=== PATIENT | female | born 2000 | race Caucasian/White ===

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

== ENCOUNTER 2021-10-28 10:24 | Emergency (ER) | payer MEDICAID, OTHER ==
[~2021-10-28] VITALS: Ht 160 cm; Wt 59.9 kg
[2021-10-28 10:31] VITALS: BP 122/45
--- NOTE | 2021-10-28 10:45 | NUR ---
pt returned to lobby at this time with urine cup
--- NOTE | 2021-10-28 11:48 | NUR ---
AMBULATED TO BED 9
--- NOTE | 2021-10-28 12:20 | NUR ---
21/F PRESENTS TO ED WITH C/O ABDOMINAL PAIN WITH N/V/D SINCE THIS MORNING. PATIENT STATES LAST EPISODE OF VOMITING WAS UPON ARRIVAL TO ED, STATES HER SYMPTOMS OF ABDOMINAL PAIN HAS SINCE RESOLVED. DENIES TAKING ANYTHING FOR SYMPTOMS, DENIES FEVER, CHILLS, CP OR SOB.
[2021-10-28] MEDS ORDERED: ONDANSETRON 4 MG ODT PO ONE (12:25)
--- NOTE | 2021-10-28 12:45 | NUR ---
FLU AND NOVEL SWABS COLLECTED AND WALKED TO LAB.
[2021-10-28] MEDS ORDERED: ONDA-188 PO (14:40)
[2021-10-28 15:23] VITALS: BP 118/50
--- NOTE | 2021-10-28 15:23 | NUR ---
Patient discharged with v/s stable. Written and verbal after care instructions given and explained. Patient alert, oriented and verbalized understanding of instructions. Ambulatory with steady gait. All questions addressed prior to discharge. ID band removed. Patient advised to follow up with PMD. Rx of Zofran ODT 4mg given. Patient educated on indication of medication including possible reaction and side effects. Opportunity to ask questions provided and answered.
== END 2021-10-28 15:23 | disposition home or self-care (01) ==
LOC: MED 10:24
DX: R10.9 Unspecified abdominal pain (principal); Z20.822 Contact with and (suspected) exposure to COVID-19; R11.2 Nausea with vomiting, unspecified; R19.7 Diarrhea, unspecified; Z79.899 Other long term (current) drug therapy
CPT/HCPCS: 81002; 87804; 99283; Q0162; U0003

== ENCOUNTER 2021-11-23 20:58 | Emergency (ER) | payer OTHER ==
[~2021-11-23] VITALS: Ht 160 cm; Wt 54.4 kg
[~2021-11-23 20:58] MED LIST changes: +ONDA-188 PO
[2021-11-23 21:21] VITALS: BP 156/72
--- NOTE | 2021-11-23 21:27 | NUR ---
TO LOBBY FOLLOWING TRIAGE
--- NOTE | 2021-11-23 21:27 | NUR ---
Florentin mcfarland in [facility] - 11/23/21 at 2128 by PROSPER TO SHAR FOLLOWING TRIAGE
[2021-11-23] MEDS ORDERED: HYDROcodone/APAP 5/325 MG 1 TAB TAB PO ONE (23:35)
[2021-11-23] MEDS ORDERED: LIDOCAINE MPF 1% 10 MG/ML VIAL INJ ONE (23:35)
[2021-11-24] MEDS ORDERED: cephALEXin 500 MG CAP PO ONE (00:45)
--- NOTE | 2021-11-24 00:54 | NUR ---
PT RETURN FROM XRAY
[2021-11-24] MEDS ORDERED: CEPH-588 PO (01:09)
[2021-11-24] MEDS ORDERED: HYDROcodone/APAP 5/325 MG 1 TAB TAB ONE (01:10)
== END 2021-11-24 01:32 | disposition home or self-care (01) ==
LOC: MED 20:58
DX: S92.491A Other fracture of right great toe, initial encounter for closed fracture (principal); X58.XXXA Exposure to other specified factors, initial encounter; Y93.89 Activity, other specified; Y92.89 Other specified places as the place of occurrence of the external cause; Y99.8 Other external cause status
CPT/HCPCS: 11730; 73660; 90471; 90715; 99284; J2001

== ENCOUNTER 2022-06-02 10:50 | Emergency (ER) | payer OTHER ==
[~2022-06-02] VITALS: Ht 160 cm; Wt 62.1 kg
[~2022-06-02 10:50] MED LIST changes: +CEPH-588 PO
[2022-06-02 10:59] VITALS: BP 127/75
--- NOTE | 2022-06-02 11:07 | NUR ---
22 y/o female, c/o abdominal pain, n&v, chest pain that started this morning. skin is pink/warm/dry. a&o x4 with even and steady gait. lungs clear bl, heart rate even and tachy. pt denies dysuria, hematuria, urinary frequency or retention, or anyone sick in the household with the same symptoms. pt denies any fever, cp, sob, or cough at this time. pt states pain is 10/10 at this time, describes it as a stabbing pain. ermd made aware of pt. pmh: denies nka med: denies Addendum: 06/02/22 at 1130 by [facility] 22 y/o female, c/o abdominal pain, n&v, chest pain that started this morning. skin is pink/warm/dry. a&o x4 with even and steady gait. lungs clear bl, heart rate even and tachy. pt denies dysuria, hematuria, urinary frequency or retention, or anyone sick in the household with the same symptoms. pt denies any fever, cp, sob, or cough at this time. pt states pain is 10/10 at this time, describes it as a stabbing pain. ermd made aware of pt. pt states last night she was heavily drinking, reports drinking around 10 shots of alcohol, unable to recall what kind. pmh: denies nka med: denies
--- NOTE | 2022-06-02 11:19 | NUR ---
pt ambulated to bed 11 at this time
[2022-06-02] MEDS ORDERED: ONDANSETRON 4 MG/2 ML VIAL IVP ONE (11:40)
--- NOTE | 2022-06-02 11:40 | NUR ---
Blood work handed to CPT Gala at ER bedside.
[2022-06-02] MEDS ORDERED: ONDANSETRON 4 MG/2 ML VIAL ONE (11:41)
--- NOTE | 2022-06-02 11:41 | NUR ---
Patient with one episode of vomiting.
--- NOTE | 2022-06-02 11:59 | NUR ---
Dr. Larios is evaluating patient at bedside
[2022-06-02 12:02] LABS: APPEARANCE,URINE CLEAR (CLEAR); BILIRUBIN,URINE NEGATIVE (NEGATIVE); BLOOD, URINE TRACE-I (NEGATIVE); COLOR,URINE YELLOW (YELLOW); LEUKOCYTE ESTERASE ,URINE NEGATIVE (NEGATIVE); NITRITE, URINE NEGATIVE (NEGATIVE); UGLUCOSE NEGATIVE (NEGATIVE)
[2022-06-02] MEDS ORDERED: NACL 0.9% 1,000 ML IV ONE (12:05)
--- NOTE | 2022-06-02 12:20 | NUR ---
Patient transported to [facility] by w/c.
[2022-06-02 12:21] LABS: RBC,URINE 0-5 /HPF (0-5)
[2022-06-02 12:22] LABS: OTHER CASTS, URINE None Seen /LPF (None Seen); WBC,URINE 0-5 /HPF (0-5)
[2022-06-02 12:24] LABS: ALBUMIN 4.6 g/dL (3.4-5.0); ANION GAP 19.9 (8-16); CARBON DIOXIDE 18.4 mmol/L (21-32); CREATININE 0.7 mg/dL (0.6-1.3); POTASSIUM 3.3 mmol/L (3.5-5.1); TOTAL BILIRUBIN 0.5 mg/dL (0.0-1.0)
--- NOTE | 2022-06-02 12:27 | NUR ---
Patient returned from RAD via WC.
--- NOTE | 2022-06-02 12:33 | NUR ---
Pt states feels a lot better. IVF continued. Denies nausea at this time. VSS; RR even/unlabored.
[2022-06-02 12:49] LABS: HEMATOCRIT 40.2 % (36-48); HEMOGLOBIN 13.6 g/dL (12.0-16.0); MEAN CORPUSCULAR HEMOGLOBIN 31 pg (27-31); MEAN CORPUSCULAR HGB CONC 34 g/dL (33-37); MEAN CORPUSCULAR VOLUME 91.8 fL (80-94); PLATELET COUNT (AUTO) 186 K/uL (140-450); RED BLOOD CELL COUNT(AUTO) 4.38 MIL/uL (4.20-5.40); RED CELL DISTRIBUTION WIDTH 13.1 % (11.6-13.7); WHITE BLOOD COUNT (AUTO) 23.1 K/uL (4.8-10.8)
[2022-06-02] MEDS ORDERED: TAMSULOSIN 0.4 MG CAP GT STA (13:46)
[2022-06-02 13:55] LABS: BASOPHILS % (AUTO) 0.1 % (0.0-2.0); EOSINOPHILS # (AUTO) 0.1 K/uL (0-0.4); EOSINOPHILS % (AUTO) 0.2 % (0.0-4.0); LYMPHOCYTES # (AUTO) 1.9 K/uL (2.5-16.5); LYMPHOCYTES % (AUTO) 8.3 % (20.5-51.1); MONOCYTES # (AUTO) 1.2 K/uL (0.8-1.0); MONOCYTES % (AUTO) 5.4 % (1.7-9.3); NEUTROPHILS # (AUTO) 19.9 K/uL (1.8-7.7); PLATELET COUNT,MANUAL 187 K/uL (150-450)
[2022-06-02] MEDS ORDERED: POTASSIUM CHLORIDE 10 MEQ TABER PO ONE ×2 (13:55→13:57)
[2022-06-02 13:58] LABS: LYMPHOCYTES % (MANUAL) 6 % (20-46); MONOCYTES % (MANUAL) 4 % (5-12)
--- NOTE | 2022-06-02 13:59 | NUR ---
Pulled additional K-Dur 10mEq d/t patient dropping on ground.
[2022-06-02] MEDS ORDERED: MAG-27 PO (14:09)
[2022-06-02] MEDS ORDERED: ONDA-188 PO (14:09)
[2022-06-02 14:14] VITALS: BP 103/57
--- NOTE | 2022-06-02 14:36 | NUR ---
Patient discharged with v/s stable. Written and verbal after care instructions given and explained. Patient alert, oriented and verbalized understanding of instructions. Ambulatory with steady gait. All questions addressed prior to discharge. ID band removed. Patient advised to follow up with PMD. Rx of Tate Knapp given. Patient educated on indication of medication including possible reaction and side effects. Opportunity to ask questions provided and answered.
== END 2022-06-02 14:36 | disposition home or self-care (01) ==
LOC: MED 10:50
DX: R10.10 Upper abdominal pain, unspecified (principal); R11.0 Nausea; Z98.890 Other specified postprocedural states; Z79.899 Other long term (current) drug therapy
CPT/HCPCS: 36415; 74176; 80053; 81001; 81025; 83690; 85025; 96361; 96374; 99284; J2405; J7030

== ENCOUNTER 2023-01-08 08:32 | Emergency (ER) | payer OTHER ==
[~2023-01-08] VITALS: Ht 160 cm; Wt 65.4 kg
[~2023-01-08 08:32] MED LIST changes: +MAG-27 PO
[2023-01-08 08:39] VITALS: BP 118/60
--- NOTE | 2023-01-08 08:58 | NUR ---
ASSUMED PATIENT CARE, NURSING ASSESSMENT COMPLETED.
[2023-01-08] MEDS ORDERED: ONDANSETRON 4 MG/2 ML VIAL IVP ONE (09:10)
[2023-01-08] MEDS ORDERED: NACL 0.9% 1,000 ML IV SCH (09:10)
[2023-01-08 09:46] LABS: APPEARANCE,URINE CLEAR (CLEAR); BILIRUBIN,URINE NEGATIVE (NEGATIVE); BLOOD, URINE NEGATIVE (NEGATIVE); COLOR,URINE YELLOW (YELLOW); LEUKOCYTE ESTERASE ,URINE TRACE (NEGATIVE); NITRITE, URINE NEGATIVE (NEGATIVE); PH,URINE 8.5 (5.0-9.0); UGLUCOSE NEGATIVE (NEGATIVE)
[2023-01-08 10:07] LABS: BASOPHILS % (AUTO) 0.2 % (0.0-2.0); EOSINOPHILS # (AUTO) 0.2 K/uL (0-0.4); EOSINOPHILS % (AUTO) 1.2 % (0.0-4.0); HEMATOCRIT 38.8 % (36-48); HEMOGLOBIN 12.9 g/dL (12.0-16.0); LYMPHOCYTES % (AUTO) 6.6 % (20.5-51.1); MEAN CORPUSCULAR HEMOGLOBIN 30 pg (27-31); MEAN CORPUSCULAR HGB CONC 33 g/dL (33-37); MEAN CORPUSCULAR VOLUME 91.4 fL (80-94); MONOCYTES # (AUTO) 0.5 K/uL (0.8-1.0); MONOCYTES % (AUTO) 3.1 % (1.7-9.3); NEUTROPHILS # (AUTO) 13.2 K/uL (1.8-7.7); NEUTROPHILS % (AUTO) 88.9 % (42.2-75.2); PLATELET COUNT (AUTO) 172 K/uL (140-450); RED BLOOD CELL COUNT(AUTO) 4.24 MIL/uL (4.20-5.40); RED CELL DISTRIBUTION WIDTH 12.8 % (11.6-13.7); WHITE BLOOD COUNT (AUTO) 14.8 K/uL (4.8-10.8)
[2023-01-08 10:58] LABS: ALBUMIN 3.8 g/dL (3.4-5.0); ANION GAP 18.9 (8-16); ASPARTATE AMINOTRANSFERASE 16 U/L (15-37); CARBON DIOXIDE 20.6 mmol/L (21-32); CHLORIDE 102 mmol/L (98-107); CREATININE 0.8 mg/dL (0.6-1.3); GFR ARICAN-AMERICAN 116 mL/min (>90); GLUCOSE 123 mg/dL (74-106); LIPASE 63 U/L (73-393); POTASSIUM 3.5 mmol/L (3.5-5.1); SODIUM SERUM 138 mmol/L (136-145); TOTAL BILIRUBIN 0.5 mg/dL (0.0-1.0); UREA NITROGEN, BLOOD 23 mg/dL (7-18)
[2023-01-08 11:27] LABS: RBC,URINE 0-5 /HPF (0-5); WBC,URINE 0-5 /HPF (0-5)
--- NOTE | 2023-01-08 11:27 | NUR ---
TO CT VIA [facility].
[2023-01-08] MEDS ORDERED: ONDA-188 SL (13:02)
[2023-01-08 13:16] VITALS: BP 114/52
--- NOTE | 2023-01-08 13:17 | NUR ---
DISPO AND MEDICAL DECISION MAKING, DC HOME WITH E-RX AND AFTERCARE INSTRUCTIONS UNDERSTOOD BY PATIENT WELL, VS WNL, SYMPTOMS IMPROVED.
== END 2023-01-08 13:16 | disposition home or self-care (01) ==
LOC: MED 08:32
DX: R10.30 Lower abdominal pain, unspecified (principal); R11.2 Nausea with vomiting, unspecified; R19.7 Diarrhea, unspecified; E86.0 Dehydration; Z79.899 Other long term (current) drug therapy
CPT/HCPCS: 36415; 74177; 76830; 80053; 81001; 81025; 83690; 85025; 96361; 96374; 99285; J2405; Q0092; Q9967; J7030

== ENCOUNTER 2024-05-22 23:12 | Emergency (ER) | payer OTHER ==
[~2024-05-22] VITALS: Ht 160 cm; Wt 61.2 kg
[~2024-05-22 23:12] MED LIST changes: +ONDA-188 SL
[2024-05-22 23:40] VITALS: BP 120/79; PULSE 106; RESP 20; TEMP 98; O2SAT 96
[2024-05-23 01:03] LABS: FLU A ANTIGEN negative (NEGATIVE); FLU B ANTIGEN NEGATIVE (NEGATIVE)
[2024-05-23] MEDS ORDERED: NAPR-1704 PO (02:35)
[2024-05-23] MEDS ORDERED: ROBAC PO (02:35)
[2024-05-23 02:41] VITALS: PULSE 81; RESP 18; O2SAT 99
[2024-05-23] MEDS: ALBUTEROL SULFATE/IPRATROPIU 3 ML SOL IH ONE (02:41)
[2024-05-23 02:56] VITALS: BP 108/66; PULSE 81; RESP 18; TEMP 98; O2SAT 99
[2024-05-23] MEDS ORDERED: ALBU0.0912 IH (03:08)
== END 2024-05-23 02:56 | disposition home or self-care (01) ==
LOC: MED 23:12
DX: J20.9 Acute bronchitis, unspecified (principal); B34.9 Viral infection, unspecified; Z20.822 Contact with and (suspected) exposure to COVID-19; Z79.899 Other long term (current) drug therapy
CPT/HCPCS: 71045; 94640; 99284

== ENCOUNTER 2024-09-03 11:12 | Emergency (ER) | payer OTHER ==
[~2024-09-03] VITALS: Ht 160 cm; Wt 66.2 kg
[~2024-09-03 11:12] MED LIST changes: +ALBU0.0912 IH; +NAPR-1704 PO; +ROBAC PO
[2024-09-03 11:26] VITALS: BP 115/75; PULSE 79; RESP 20; TEMP 98; O2SAT 100
[2024-09-03 12:00] VITALS: O2SAT 100
[2024-09-03] MEDS: NACL 0.9% 1,000 ML IV ONE (12:32)
[2024-09-03] MEDS: ONDANSETRON 4 MG/2 ML VIAL IVP ONE (12:41)
[2024-09-03 12:49] LABS: BILIRUBIN,URINE NEGATIVE (NEGATIVE); BLOOD, URINE 3+ (NEGATIVE); COLOR,URINE YELLOW (YELLOW); LEUKOCYTE ESTERASE ,URINE NEGATIVE (NEGATIVE); NITRITE, URINE NEGATIVE (NEGATIVE); PH,URINE 8.5 (5.0-9.0); PROTEIN,URINE TRACE (NEGATIVE); UGLUCOSE NEGATIVE (NEGATIVE); UROBILINOGEN,URINE 0.2 EU/dL (0.2 - 1)
[2024-09-03 12:49] LABS: BASOPHILS % (AUTO) 0.3 % (0.0-2.0); EOSINOPHILS % (AUTO) 0.6 % (0.0-4.0); HEMATOCRIT 40.5 % (36-48); HEMOGLOBIN 13.7 g/dL (12.0-16.0); LYMPHOCYTES # (AUTO) 1.2 K/uL (2.5-16.5); MEAN CORPUSCULAR HEMOGLOBIN 31 pg (27-31); MEAN CORPUSCULAR HGB CONC 34 g/dL (33-37); MEAN CORPUSCULAR VOLUME 91.4 fL (80-94); MONOCYTES # (AUTO) 0.4 K/uL (0.8-1.0); MONOCYTES % (AUTO) 4.8 % (1.7-9.3); NEUTROPHILS % (AUTO) 78.3 % (42.2-75.2); PLATELET COUNT (AUTO) 173 K/uL (140-450); RED BLOOD CELL COUNT(AUTO) 4.43 MIL/uL (4.20-5.40); RED CELL DISTRIBUTION WIDTH 13.9 % (11.6-13.7); WHITE BLOOD COUNT (AUTO) 7.6 K/uL (4.8-10.8)
[2024-09-03 12:53] LABS: APPEARANCE,URINE HAZY (CLEAR)
[2024-09-03 13:01] LABS: BACTERIA,URINE 3+ /HPF (None Seen); SQUAMOUS EPITHELIAL CELL,UR 4-10 (MOD) /LPF (0-3 (FEW))
[2024-09-03 13:02] LABS: MUCUS,URINE 2+ /LPF (None Seen)
[2024-09-03 13:31] LABS: ANION GAP 14.1 (8-16); CALCIUM 9.2 mg/dL (8.5-10.1); CARBON DIOXIDE 25.9 mmol/L (21-32); CREATININE 0.8 mg/dL (0.6-1.3)
[2024-09-03 13:35] LABS: ALBUMIN 4.3 g/dL (3.4-5.0); BILIRUBIN,DIRECT 0.1 mg/dL (0.0-0.3); TOTAL BILIRUBIN 0.7 mg/dL (0.0-1.0); TOTAL PROTEIN, SERUM 8.2 g/dL (6.4-8.2)
[2024-09-03] MEDS ORDERED: ONDA-188 SL (14:22)
[2024-09-03] MEDS: POTASSIUM CHLORIDE 10 MEQ TABER PO ONE (15:08)
== END 2024-09-03 14:43 | disposition home or self-care (01) ==
LOC: MED 11:12
DX: E87.6 Hypokalemia (principal); R11.2 Nausea with vomiting, unspecified; Z79.899 Other long term (current) drug therapy
CPT/HCPCS: 36415; 80048; 80076; 81001; 81025; 83690; 85025; 87086; 96361; 96374; 99283; J2405; J7030